=== PATIENT | female | born 1995 | race Two or more races ===

== ENCOUNTER 2022-11-03 14:36 | Emergency (ER) | payer MEDICAID ==
[~2022-11-03] VITALS: Ht 170.2 cm; Wt 56.7 kg
--- NOTE | 2022-11-03 15:40 | NUR ---
dr montalvo at bedside for eval
--- NOTE | 2022-11-03 15:45 | NUR ---
C/O CHEST AND ABDOMINAL PAIN TODAY,SEEN AT AN URGENT CARE 3 DAYS AGO due to pain on urination
--- NOTE | 2022-11-03 15:50 | NUR ---
emtide for ekg
--- NOTE | 2022-11-03 16:31 | NUR ---
pain started as nausea vomiting 3days ago, went to pmd dx uti, today she had back pain and vaomiting pmd gave toradol and sent her to er
[2022-11-03] MEDS ORDERED: CIPROFLOXACIN IV RTU 200 ML IV ONE (16:53)
[2022-11-03] MEDS ORDERED: FAMOTIDINE/PF INJ 20 MG/2 ML VIAL IV ONE ×2 (16:54→17:00)
[2022-11-03] MEDS ORDERED: ONDANSETRON HCL/PF 4 MG/2 ML VIAL ONE (16:54)
[2022-11-03] MEDS ORDERED: IV NS 0.9% 1,000 ML BAG IV ONE (17:00)
[2022-11-03] MEDS ORDERED: ONDANSETRON HCL/PF 4 MG/2 ML VIAL IVP ONE (17:00)
--- NOTE | 2022-11-03 17:00 | NUR ---
sanjay collected, sent to lab
[2022-11-03 17:23] LABS: BASOPHILS # (AUTO) 0.1 K/uL (0.0-0.2); BASOPHILS % (AUTO) 1.4 % (0.0-2.0); EOSINOPHILS % (AUTO) 0.1 % (0.0-6.0); HEMATOCRIT 40 % (33-45); HEMOGLOBIN 12.8 g/dL (11.5-14.8); LYMPHOCYTES # (AUTO) 0.5 K/uL (0.8-4.8); LYMPHOCYTES % (AUTO) 4.7 % (20.0-44.0); MEAN CORPUSCULAR HGB CONC 32 g/dl (31.0-36.0); MEAN CORPUSCULAR VOLUME 91 fL (82-100); MONOCYTES # (AUTO) 0.7 K/uL (0.1-1.30); MONOCYTES % (AUTO) 6.6 % (2.0-12.0); NEUTROPHILS # (AUTO) 9.3 K/uL (1.8-8.9); NEUTROPHILS % (AUTO) 87.2 % (43.0-81.0); PLATELET COUNT (AUTO) 298 K/uL (150-450); RED BLOOD CELL COUNT(AUTO) 4.34 MIL/uL (4.0-5.2); WHITE BLOOD COUNT (AUTO) 10.6 K/uL (4.3-11.0)
[2022-11-03] MEDS: CIPROFLOXACIN IV RTU 400 MG in PREMIX 1 EA IV SCH ×2 (17:25→19:40)
[2022-11-03 17:57] LABS: CALCIUM, SERUM 9.9 mg/dL (8.5-10.1); CREATININE 1.8 mg/dL (0.6-1.3); POTASSIUM 3.8 mmol/L (3.5-5.1)
[2022-11-03 18:14] LABS: ALBUMIN 4.2 g/dL (3.4-5.0); BILIRUBIN,DIRECT 0.2 mg/dL (0.0-0.2); BILIRUBIN,TOTAL 1.2 mg/dL (0.2-1.0); TOTAL PROTEIN, SERUM 8.4 g/dL (6.4-8.2)
[2022-11-03 18:16] LABS: BILIRUBIN,URINE NEGATIVE (NEGATIVE); COLOR,URINE YELLOW (YELLOW); LEUKOCYTE ESTERASE ,URINE 3+ (NEGATIVE); NITRITE, URINE POSITIVE (NEGATIVE); PROTEIN,URINE 1+ mg/dl (NEGATIVE); UGLUCOSE NEGATIVE (NEGATIVE)
--- NOTE | 2022-11-03 18:24 | NUR ---
PT CLAIMS SHE'S DOING BETTER THAN BEFORE
[2022-11-03 18:27] LABS: WBC,URINE 51-80 /HPF (0-3)
[2022-11-03 18:28] LABS: BACTERIA,URINE 4+ /HPF (None Seen); MUCUS,URINE Moderate /LPF (None Seen)
[2022-11-03] MEDS ORDERED: ONDA4TAB5 SL (19:18)
--- NOTE | 2022-11-03 19:40 | NUR ---
Patient discharged to home in stable condition. Written and verbal after care instructions given. Patient verbalizes understanding of instruction. Pt ambulatory with a steady gait
[2022-11-03 19:41] VITALS: BP 120/70; TEMP 97.8; O2SAT 97
[2022-11-08] MEDS ORDERED: MERO1VIA23 IV (12:33)
== END 2022-11-03 19:41 | disposition home or self-care (01) ==
LOC: ER 14:51
DX: N39.0 Urinary tract infection, site not specified (principal); Z88.1 Allergy status to other antibiotic agents
CPT/HCPCS: 99284; 96374; 96361; 96375; 93005 ×2; 85025; 80048; 87086; 83690; 80076; 81001; 36415; 84702; J3490; J2405; J7030; A4216; J0744 ×2

== ENCOUNTER 2022-11-06 02:56 | Inpatient (IN) | payer MEDICAID, OTHER ==
[~2022-11-06] VITALS: Ht 170.2 cm; Wt 56.7 kg
[~2022-11-06 02:56] MED LIST: ONDA4TAB5 SL
--- NOTE | 2022-11-06 03:57 | NUR ---
SUZY C/O AMADA WAS SEEN A FEW DAYS AGO AND WAS DISCHARGED. PAIN CAME BACK TONIGHT FELT WORSE. PT AAO X 4, BREATHING UNLABORED. PT ATTACHED TO MONITOR AND PULSE OX. AWAITING MD JONES.
[2022-11-06] MEDS ORDERED: HYDROMORPHONE INJ 2 MG/ML DISP.SYRIN IV ONE (04:00)
[2022-11-06] MEDS ORDERED: IV NS 0.9% 1,000 ML BAG IV ONE ×2 (04:00→07:30)
[2022-11-06] MEDS ORDERED: ONDANSETRON HCL/PF 4 MG/2 ML VIAL IVP ONE (04:00)
[2022-11-06] MEDS ORDERED: CT SWABBABLE VALVE TRANS SET 1 EA INFUS.SET MC ONE (04:09)
[2022-11-06] MEDS ORDERED: IV NS 0.9% 250 ML IV ONE (04:09)
[2022-11-06] MEDS ORDERED: IOHEXOL-350 100 ML VIAL IV ONE (04:09)
[2022-11-06] MEDS ORDERED: HYDROMORPHONE 1 MG/1 ML DISP.SYRIN ONE ×2 (04:10→07:37)
[2022-11-06] MEDS ORDERED: ONDANSETRON HCL/PF 4 MG/2 ML VIAL ONE ×2 (04:10→07:36)
--- NOTE | 2022-11-06 04:18 | NUR ---
LFA #20G S/L BLOOD COLLETED AND SENT TO LAB
--- NOTE | 2022-11-06 04:23 | NUR ---
pt taken to ct via palomo
[2022-11-06 04:48] LABS: BASOPHILS % (AUTO) 0.3 % (0.0-2.0); EOSINOPHILS % (AUTO) 0.2 % (0.0-6.0); HEMATOCRIT 34 % (33-45); HEMOGLOBIN 11.1 g/dL (11.5-14.8); LYMPHOCYTES # (AUTO) 0.5 K/uL (0.8-4.8); LYMPHOCYTES % (AUTO) 6.2 % (20.0-44.0); MEAN CORPUSCULAR HGB CONC 33 g/dl (31.0-36.0); MEAN CORPUSCULAR VOLUME 90 fL (82-100); MONOCYTES # (AUTO) 1.2 K/uL (0.1-1.30); MONOCYTES % (AUTO) 15.3 % (2.0-12.0); NEUTROPHILS # (AUTO) 6.3 K/uL (1.8-8.9); PLATELET COUNT (AUTO) 219 K/uL (150-450); RED BLOOD CELL COUNT(AUTO) 3.73 MIL/uL (4.0-5.2); WHITE BLOOD COUNT (AUTO) 8.1 K/uL (4.3-11.0)
[2022-11-06 05:02] LABS: ALBUMIN 3.4 g/dL (3.4-5.0); BILIRUBIN,DIRECT 0.1 mg/dL (0.0-0.2); BILIRUBIN,TOTAL 0.6 mg/dL (0.2-1.0); CREATININE 0.8 mg/dL (0.6-1.3); TOTAL PROTEIN, SERUM 7.1 g/dL (6.4-8.2)
--- NOTE | 2022-11-06 05:50 | NUR ---
urine collected, sent to lab
[2022-11-06 06:13] VITALS: O2SAT 96
--- NOTE | 2022-11-06 06:14 | NUR ---
Dr Bowers speaking to patient's dad
--- NOTE | 2022-11-06 06:15 | NUR ---
us tech at bedside
--- NOTE | 2022-11-06 06:55 | NUR ---
Dr Robinson BOOTH on phone call with Dr. Lazcano
[2022-11-06 07:26] LABS: BILIRUBIN,URINE NEGATIVE (NEGATIVE); COLOR,URINE YELLOW (YELLOW); LEUKOCYTE ESTERASE ,URINE NEGATIVE (NEGATIVE); NITRITE, URINE NEGATIVE (NEGATIVE); PH,URINE 5.5 (5.0-8.0); PROTEIN,URINE NEGATIVE (NEGATIVE); UGLUCOSE NEGATIVE (NEGATIVE); UROBILINOGEN,URINE 0.2 EU/dL (0.2)
[2022-11-06] MEDS ORDERED: HYDROMORPHONE 1 MG/1 ML DISP.SYRIN IV ONE (07:30)
[2022-11-06] MEDS ORDERED: ONDANSETRON HCL/PF - ER 4 MG/2 ML VIAL IV ONE (07:30)
[2022-11-06 07:59] LABS: BACTERIA,URINE Few /HPF (None Seen); SQUAMOUS EPITHELIAL CELL,UR Few /HPF (None Seen)
[2022-11-06] MEDS ORDERED: MAG HYDROX/AL HYDROX/SIMETH 30 ML UDC PO PRN (09:00)
[2022-11-06] MEDS ORDERED: MAGNESIUM HYDROXIDE 30 ML UDC PO PRN (09:00)
[2022-11-06] MEDS ORDERED: Z GUARD REMEDY 4 OZ OINT TP PRN (09:00)
[2022-11-06] MEDS ORDERED: ACETAMINOPHEN 325 MG TABLET PO PRN (09:00)
[2022-11-06] MEDS ORDERED: ZOLPIDEM TARTRATE 5 MG TABLET PO PRN (09:00)
--- NOTE | 2022-11-06 09:08 | NUR ---
325-2 PER NURSING SUP. ADMISSIONS NOTIFIED
[2022-11-06] MEDS ORDERED: ZOSYN IVPB 3.375 G in IV D5W 50ml IV SCH ×2 (09:18→12:00)
[2022-11-06] MEDS ORDERED: PANTOPRAZOLE 40 MG VIAL ONE (09:42)
[2022-11-06] MEDS: PANTOPRAZOLE 40 MG VIAL IV SCH (09:46)
--- NOTE | 2022-11-06 09:58 | NUR ---
REPORT GIVEN TO ELLEN YIFAN
[2022-11-06 10:00] VITALS: BP 112/70; TEMP 98.2; O2SAT 96
--- NOTE | 2022-11-06 10:08 | NUR ---
1 L NS IV wide open administered per verbal order of Dr Lazcano
--- NOTE | 2022-11-06 10:16 | NUR ---
THE PATIENT IS TAKEN TO ROOM 325-2 IN STABLE CONDITION AND PER POLICY.
--- NOTE | 2022-11-06 10:20 | NUR ---
ADMISSION NOTE Received patient from ER via gurkimberly. Report given by ELLEN Canas. Patient is A/O x 4, able to make needs known. On room air, breathing evenly and unlabored. No SOB or s/s of distress noted. IV access noted on Left wrist #20, intact and patent. All belongings accounted for, belonging sheet signed. Vital signs taken as follows: BP 112/70, HR 79/min, RR 20/min, Temp 98.2, SPO2 96%. Patient oriented to room and how to use the call light. Patient complained of nausea, Zofran was given at the ER. Safety precautions in place: bed in low, locked position; siderails up x 2; call light within reach. Will continue to monitor.
[2022-11-06] MEDS: IV D5/0.45 NACL 1,000 ML IV PRN ×2 (10:26→21:37)
[2022-11-06] MEDS: CIPROFLOXACIN IV RTU 400 MG in PREMIX 1 EA IV SCH ×2 (12:29→23:53)
[2022-11-06] MEDS: MORPHINE SULFATE INJ 4 MG/ML DISP.SYRIN IV PRN ×2 (12:58→17:10)
[2022-11-06] MEDS: METRONIDAZOLE 500MG/ NS 100ML 500 MG in PREMIX 1 EA IV SCH ×2 (13:25→18:09)
[2022-11-06] MEDS: ONDANSETRON HCL/PF 4 MG/2 ML VIAL IVP PRN (14:28)
[2022-11-06] MEDS ORDERED: KETOROLAC TROMETHAMINE INJ 30 MG/ML VIAL IM PRN (15:30)
[2022-11-06 16:00] VITALS: BP 110/67; TEMP 98.8; O2SAT 98
--- NOTE | 2022-11-06 18:48 | NUR ---
LINING INSERTER CLOSING NOTE Patient in bed, resting. A/O x 4, able to make needs known. Stable on room air, no SOB or s/s of distress noted. IV access on Left wrist #20 infusing D5 1/2 Ns at 125 ml/hr. Patient states pain and nausea is better at this time. All needs attended to. Due meds given. Safety precautions in place: bed in low, locked position; siderails up x 2; call light within reach. Will endorse to shift mechanic nurse for HERMELINDA.
--- NOTE | 2022-11-06 19:10 | NUR ---
MS RN OPENING NOTE RECEIVED PATIENT FROM AM NURSE; PATIENT AWAKE IN BED, A/O X 4, ABLE TO MAKE NEEDS KNOWN, WITH FAMILY AT BEDSIDE; STABLE ON ROOM AIR, BREATHING EVENLY AND NO S/S OF DISTRESS NOTED; WITH IV ACCESS ON LEFT WRIST G#20 RUNNING WITH D5 1/2NS AT 125ML/HR; ENCOURAGED VERBALIZATION OF NEEDS; SAFETY MEASURES IMPLEMENTED, BED LOCKED IN LOWEST POSITION, SIDE RAILS UP X 2, CALL LIGHT AND TABLE WITHIN REACH; WILL CONTINUE TO MONITOR THROUGHOUT SHIFT
--- NOTE | 2022-11-06 19:20 | NUR ---
MS RN NOTE PATIENT COMPLAINED OF SEVERE PAIN ON HER ABDOMEN, ASKING FOR PAIN MEDICATION; ADMINISTERED TORADOL IM PRN PRESCRIBED; DR ECHEVERRIA AWARE. PATIENT TOLERATED WELL, WILL CONTINUE TO MONITOR
[2022-11-06 20:53] VITALS: BP 98/52; TEMP 98.6; O2SAT 96
--- NOTE | 2022-11-06 23:10 | NUR ---
MS RN NOTE PATIENT ASKED FOR SLEEPING MEDICATION TO HELP HER FALL ASLEEP. PATIENT IS ON NPO. HOWEVER, ASKED DR ECHEVERRIA IF I CAN GIVE THE AMBIEN, AGREED. ADMINISTERED AMBIEN PRN AT 2212H PRESCRIBED; PATIENT TOLERATED WELL AND WAS SEEN COMFORTABLY SLEEPING UPON REASSESSMENT. WILL CONTINUE TO MONITOR
[2022-11-07] MEDS: MORPHINE SULFATE INJ 4 MG/ML DISP.SYRIN IV PRN ×4 (00:42→21:05)
--- NOTE | 2022-11-07 01:15 | NUR ---
MS RN NOTE PATIENT WOKE UP AND STATED THAT SHE'S FEELING IN A LOT OF PAIN AND ASKED FOR MEDICATION TO RELIEVE HER PAIN. ADMINISTERED MORPHINE 4MG IV PRN PRESCRIBED AT 0042H; PATIENT WAS SEEN SLEEPING UPON REASSESSMENT. WILL CONTINUE TO MONITOR
[2022-11-07] MEDS: METRONIDAZOLE 500MG/ NS 100ML 500 MG in PREMIX 1 EA IV SCH ×4 (01:38→18:58)
[2022-11-07] MEDS: ONDANSETRON HCL/PF 4 MG/2 ML VIAL IVP PRN ×2 (05:06→16:31)
[2022-11-07 06:24] LABS: BASOPHILS % (AUTO) 0.2 % (0.0-2.0); EOSINOPHILS % (AUTO) 0.7 % (0.0-6.0); HEMATOCRIT 30 % (33-45); HEMOGLOBIN 10.1 g/dL (11.5-14.8); LYMPHOCYTES # (AUTO) 0.7 K/uL (0.8-4.8); LYMPHOCYTES % (AUTO) 10.4 % (20.0-44.0); MEAN CORPUSCULAR HGB CONC 33 g/dl (31.0-36.0); MEAN CORPUSCULAR VOLUME 90 fL (82-100); MONOCYTES # (AUTO) 1.2 K/uL (0.1-1.30); MONOCYTES % (AUTO) 17.4 % (2.0-12.0); NEUTROPHILS # (AUTO) 4.8 K/uL (1.8-8.9); NEUTROPHILS % (AUTO) 71.3 % (43.0-81.0); PLATELET COUNT (AUTO) 212 K/uL (150-450); RED BLOOD CELL COUNT(AUTO) 3.38 MIL/uL (4.0-5.2); WHITE BLOOD COUNT (AUTO) 6.7 K/uL (4.3-11.0)
[2022-11-07] MEDS: IV D5/0.45 NACL 1,000 ML IV PRN (06:34)
[2022-11-07 06:44] LABS: CALCIUM, SERUM 8.3 mg/dL (8.5-10.1); CREATININE 0.6 mg/dL (0.6-1.3); PHOSPHORUS 3.7 mg/dL (2.5-4.9); POTASSIUM 3.4 mmol/L (3.5-5.1)
--- NOTE | 2022-11-07 06:54 | NUR ---
MS RN CLOSING NOTE PATIENT RESTING IN BED, A/O X 4, ABLE TO MAKE NEEDS KNOWN, AMBULATORY WITH ASSISTANCE, WITH FAMILY AT BEDSIDE; STABLE ON ROOM AIR, BREATHING EVENLY AND NO S/S OF DISTRESS NOTED; WITH IV ACCESS ON LEFT WRIST G#20 RUNNING WITH D5 1/2NS AT 125ML/HR; ADMINISTERED MEDICATIONS PRESCRIBED; PATIENT'S NEEDS ATTENDED; KEPT WARM AND COMFORTABLE; NO COMPLAINTS OF PAIN AND DISCOMFORT AT THIS TIME; SAFETY MEASURES IMPLEMENTED, BED LOCKED IN LOWEST POSITION, SIDE RAILS UP X 2, CALL LIGHT AND TABLE WITHIN REACH; WILL ENDORSE TO AM NURSE FOR HERMELINDA.
[2022-11-07 07:00] VITALS: BP 109/62; TEMP 99.9; O2SAT 98
[2022-11-07] MEDS: PANTOPRAZOLE 40 MG VIAL IV SCH (08:04)
--- NOTE | 2022-11-07 08:30 | NUR ---
MS RN OPENING NOTE RECEIVED PATIENT RESTFUL IN BED A&O x4,BREATHING WELL ON ROOM AIR,PATIENT VERBALIZED OF PAIN 11/17,MORPHINE 4MG IV ADMINISTERED.VITALS TAKEN WITHIN NORMAL RANGE.PATIENT IS NPO,SHE ENQUIRED WHEN SHE CAN START DRINKING FLUIDS,OFFERED ICE CHIPS HAS AN IV ACCESS ON THE LEFT WRIST ,INTACT AND INFUSING,ON D5 1/2 NS 125ML/HR SKIN IS INTACT,SAFETY MEASURES IN PLACE,BED IN LOW POSITION &LOCKED,BED RAILS x2 CALL HUMPHREYS AND TABLE WITHIN REACH,CONTINUES WITH CURRENT PLAN OF CARE,CLOSE MONITORING,HOURLY ROUNDING/PRN
[2022-11-07 08:35] LABS: MAGNESIUM 1.3 mg/dL (1.8-2.4)
[2022-11-07] MEDS ORDERED: LORA-259 PO (09:10)
[2022-11-07] MEDS ORDERED: ESCI5TAB PO (09:10)
[2022-11-07] MEDS ORDERED: POTASSIUM CL. PREMIX PERIPHER. 50 ML IV SCH (09:30)
[2022-11-07] MEDS ORDERED: Magnesium 1GM/D5W 100ML PREMIX 100 ML IV SCH (10:30)
--- NOTE | 2022-11-07 10:30 | NUR ---
RN NOTE- PT HAVING IMMENSE DIFFICULTIES W IV KCL AND IV MAG SUPPLEMENTATION FOR ELECTROLYTE IMBALANCE. INFUSED SLOWER, ICE PACKS USED, DISTRACTION. PT TEARFUL, CRYING. CANNOT HANDLE IVF AT THIS TIME. STARTED ON CLEARS. MD AT BEDSIDE. PT C/O ONGOING PAIN. TORADOL INCREASED FROM 30 MG TO 60 MG. ATTEMPTING TO INCREASE PO INTAKE AND CHANGE ELECTROLYTES TO PO. MONITOR / ASSIST. P.T. EVAL, INFECTIOUS DISEASE EVAL PENDING
[2022-11-07] MEDS ORDERED: NITROFURANTOIN/MONOHYDRATE MACROCRYSTALS 100 MG CAPSULE PO SCH (11:21)
[2022-11-07] MEDS: KETOROLAC TROMETHAMINE INJ 30 MG/ML VIAL IM PRN (11:32)
[2022-11-07] MEDS ORDERED: METHOCARBAMOL (500MG) 500 MG TABLET PO SCH (13:00)
[2022-11-07] MEDS: POTASSIUM CHLORIDE 10 MEQ TABLET.SA PO SCH (14:10)
[2022-11-07] MEDS: MAGNESIUM OXIDE 400 MG TABLET PO SCH ×2 (14:10→21:04)
[2022-11-07] MEDS ORDERED: KETOROLAC TROMETHAMINE INJ 30 MG/ML VIAL IM PRN (15:30)
[2022-11-07 16:00] VITALS: BP 92/55; TEMP 98.2; O2SAT 97
--- NOTE | 2022-11-07 18:46 | NUR ---
MS RN CLOSING NOTE PATIENT RESTFUL IN BED A&O x4,BREATHING WELL ON ROOM AIR, PAIN WELL CONTROLLED RECEIVED LAST MORPHINE 4MG AROUND 4PM HAS AN IV ACCESS ON THRIGHT HAND ,INTACT AND INFUSING,ON D5 1/2 NS 125ML/HR SKIN IS INTACT,SAFETY MEASURES IN PLACE,BED IN LOW POSITION &LOCKED,BED RAILS x2 CALL HUMPHREYS AND TABLE WITHIN REACH,WILL ENDORSE PLAN OF CARE TO THE NIGHT NURSE
[2022-11-07] MEDS: METHOCARBAMOL (500MG) 500 MG TABLET PO SCH ×2 (19:11→23:31)
--- NOTE | 2022-11-07 19:30 | NUR ---
MS RN NOTES RECEIVED PT IN BED, AWAKE, FAMILY AT BEDSIDE, A/O X4, ABLE TO MAKE NEEDS KNOWN. PT STABLE ON ROOM AIR, NO SOB NOTED. IV ACCESS ON R HAND 20G, PATENT, INTACT AND INFUSING WELL WITH D5 1/2NS @ 125ML/HR. NO COMPLAINS OF PAIN OR DISCOMFORT AT THIS TIME. SAFETY PRECAUTIONS IN PLACED, BED AT LOWEST AND LOCKED POSITION, SIDE RAILS UP X2, CALL LIGHT AND TABLE WITHIN REACH. ALL NEEDS MET AT THIS TIME, WILL CONTINUE TO MONITOR.
[2022-11-07 20:00] VITALS: BP 98/55; TEMP 97.8; O2SAT 99
[2022-11-07] MEDS: MEROPENEM 1 G in IV NS 0.9% 100 ML IV SCH (21:04)
--- NOTE | 2022-11-07 21:06 | NUR ---
MS RN NOTES PT COMPLAINED OF 9/10 ABDOMINAL PAIN, ADMINISTERED PRN MORPHINE 4MG FOR PAIN NAUSEA ORDERED. WILL CONTINUE TO MONITOR PT.
[2022-11-07] MEDS ORDERED: METOCLOPRAMIDE HCL 10 MG/2 ML VIAL IV PRN (22:00)
--- NOTE | 2022-11-07 22:00 | NUR ---
RN NOTE PT COMPLAINED OF NAUSEA. INFORMED FORMAL WAITER/WAITRESS MEERA WITH NEW ORDER FOR REGLAN 10 MG IVP Q6H PRN FOR BREAKTHROUGH NAUSEA. ORDER NOTED AND CARRIED OUT. PT NOW WITH ONE EPISODE OF EMESIS. CALLED [facility] FOR APPROVAL OF REGLAN. WAITING TO BE VERIFIED.
--- NOTE | 2022-11-07 22:11 | NUR ---
MS RN NOTE PT NOTED WITH 1 EPISODE OF EMESIS, ADMINISTERED REGLAN 10MG FOR BREAKTHROUGH NAUSEA ORDERED. EMESIS BAGS PROVIDED, AFEBRILE, CONTINUOS IV FLUID MAINTAINED, ALL NEEDS MET AT THIS TIME.
[2022-11-08] MEDS: IV D5/0.45 NACL 1,000 ML IV PRN ×2 (02:23→12:00)
[2022-11-08] MEDS: MORPHINE SULFATE INJ 4 MG/ML DISP.SYRIN IV PRN ×4 (04:18→16:14)
--- NOTE | 2022-11-08 04:18 | NUR ---
MS RN NOTES PT COMPLAINS OF 9/10 BACK AND HEAD PAIN, REQUESTING FOR MORPHINE. PRN MORPHINE 4MG GIVEN. WILL REASSESS AND CONTINUE TO MONITOR PT.
[2022-11-08] MEDS: MEROPENEM 1 G in IV NS 0.9% 100 ML IV SCH ×2 (04:38→13:01)
[2022-11-08] MEDS: METHOCARBAMOL (500MG) 500 MG TABLET PO SCH ×3 (06:02→17:36)
[2022-11-08 06:29] LABS: BASOPHILS % (AUTO) 0.5 % (0.0-2.0); EOSINOPHILS % (AUTO) 1.8 % (0.0-6.0); HEMATOCRIT 28 % (33-45); HEMOGLOBIN 9.1 g/dL (11.5-14.8); LYMPHOCYTES # (AUTO) 0.8 K/uL (0.8-4.8); LYMPHOCYTES % (AUTO) 17.1 % (20.0-44.0); MEAN CORPUSCULAR HGB CONC 33 g/dl (31.0-36.0); MEAN CORPUSCULAR VOLUME 89 fL (82-100); MONOCYTES % (AUTO) 22.2 % (2.0-12.0); NEUTROPHILS # (AUTO) 2.6 K/uL (1.8-8.9); NEUTROPHILS % (AUTO) 58.4 % (43.0-81.0); PLATELET COUNT (AUTO) 225 K/uL (150-450); RED BLOOD CELL COUNT(AUTO) 3.12 MIL/uL (4.0-5.2); WHITE BLOOD COUNT (AUTO) 4.5 K/uL (4.3-11.0)
--- NOTE | 2022-11-08 06:33 | NUR ---
MS RN CLOSING NOTE PT IN BED, AWAKE, A/O X4, ABLE TO MAKE NEEDS KNOWN. PT STABLE ON ROOM AIR, NO SOB NOTED. IV ACCESS ON R HAND 20G, PATENT, INTACT AND INFUSING WELL WITH D5 1/2NS @ 125ML/HR. PT HAD 1 EPISODE OF EMESIS THIS SHIFT, MANAGED WITH PRN MEDICATIONS, NO NAUSEA COMPLAINS AT THIS TIME. DENIES PAIN OR ANY DISCOMFORT AT THIS TIME. ALL DUE MEDS GIVEN, ALL NEEDS ATTENDED. SAFETY PRECAUTIONS IN PLACED, BED AT LOWEST AND LOCKED POSITION, SIDE RAILS UP X2, CALL LIGHT AND TABLE WITHIN REACH. WILL ENDORSE TO INCOMING NURSE FOR HERMELINDA.
[2022-11-08 07:04] LABS: CALCIUM, SERUM 7.7 mg/dL (8.5-10.1); CREATININE 0.7 mg/dL (0.6-1.3); MAGNESIUM 1.4 mg/dL (1.8-2.4); POTASSIUM 3.3 mmol/L (3.5-5.1)
[2022-11-08 08:00] VITALS: BP 103/61; TEMP 98.1; O2SAT 97
--- NOTE | 2022-11-08 08:00 | NUR ---
RN NOTES PATIENT C/O OF PAIN AND DISCOMFORT AND MORPHINE IV GIVEN ORDERED
[2022-11-08] MEDS ORDERED: PANTOPRAZOLE 40 MG TABLET.DR PO SCH (09:00)
[2022-11-08] MEDS: POTASSIUM CHLORIDE 10 MEQ TABLET.SA PO SCH (09:05)
[2022-11-08] MEDS: ONDANSETRON HCL/PF 4 MG/2 ML VIAL IVP PRN (09:19)
[2022-11-08 09:42] LABS: EOSINOPHILS % (MANUAL) 3 % (0-4); LYMPHOCYTES % (MANUAL) 13 % (16-48); MONOCYTES % (MANUAL) 21 % (0-11.0); NEUTROPHILS % (MANUAL) 63 (42-76)
--- NOTE | 2022-11-08 12:15 | NUR ---
RN NOTES PATIENT C/O OF PAIN AND DISCOMFORT AND MORPHINE IV 4MG /1ML GIVEN ORDERED
[2022-11-08] MEDS ORDERED: MERO1VIA23 IV (12:33)
[2022-11-08] MEDS: KETOROLAC TROMETHAMINE INJ 30 MG/ML VIAL IM PRN (14:41)
--- NOTE | 2022-11-08 14:50 | NUR ---
RN NOTES PATIENT C/O OF PAIN AND DISCOMFORT AND TORADOL INJ 60 MG IM GIVEN ORDERED
[2022-11-08 16:00] VITALS: BP 101/64; TEMP 98.3; O2SAT 95
--- NOTE | 2022-11-08 16:20 | NUR ---
RN NOTES PATIENT C/O OF PAIN AND DISCOMFORT AND MORPHINE IV 4MG /1ML GIVEN ORDERED
--- NOTE | 2022-11-08 18:08 | NUR ---
RANGE AID NOTES PATIENT WAS SEEN BY DR BEY , FOR [facility] TO [facility] FOR [facility]URANCE REQUEST AND FURTHER MANAGEMENT , DISCHARGE PAPER WERE PREPARED AND D/C INSTRUCTIONS PROVIDED REGARDING DIET , MEDICATIONS TO CONTINUE , FOLLOW UP WITH PCP AND WHEN TO CALL 911 IN CASE OF EMERGENCY , PATIENT IS ALERT AND ORIENTED AND UNDERSTOOD INSTRUCTIONS PROVIDED WITH PARENTS AT BEDSIDE , ALL BELONGINGS WERE TAKEN AND FORM WAS SIGNED , TRANSPORTATION , VIA AMBULANCE USING [facility] [place] EMT , PATIENT WILL TRANSFERRED TO [facility] , AND SPOKE WITH JALEEL HUGHES FOR THE REPORT , LEFT AROUND [id number] WITH EMT .
== END 2022-11-08 18:10 | disposition short-term general hospital (02) | DRG 720 ==
LOC: ER 03:01 → MED 09:10
PROVIDERS: ADMIT Student in an Organized Health Care Education/Training Program; ATTEND Internal Medicine
DX: A41.9 Sepsis, unspecified organism (principal); E83.51 Hypocalcemia; D64.9 Anemia, unspecified; K52.9 Noninfective gastroenteritis and colitis, unspecified; E86.0 Dehydration; N10 Acute pyelonephritis; B96.20 Unspecified Escherichia coli [E. coli] as the cause of diseases classified elsewhere; E87.6 Hypokalemia; Z88.1 Allergy status to other antibiotic agents; Z16.11 Resistance to penicillins
CPT/HCPCS: 36415; 76705-TC; 76856-TC; 80048-TC; 80076-TC; 81001; 83690-TC; 83735-TC; 84100-TC; 84703-TC; 85025-TC; 87086-TC; 97112-TC; 97116-TC; 97530-TC; A4216; A4223; C9113; G0378; J0744; J1170; J1885; J2185; J2270; J2405; J2543; J2765; J3475; J3480; J3490; J7030; J7050; J7060; J7070; Q9967

== ENCOUNTER 2023-03-17 04:06 | Emergency (ER) | payer MEDICAID ==
[~2023-03-17] VITALS: Ht 170.2 cm; Wt 50.8 kg
[~2023-03-17 04:06] MED LIST changes: +ESCI5TAB PO; +LORA-259 PO; +MERO1VIA23 IV; -ONDA4TAB5 SL
[2023-03-17] MEDS ORDERED: MAG HYDROX/AL HYDROX/SIMETH 30 ML UDC PO ONE (04:30)
[2023-03-17] MEDS ORDERED: ONDANSETRON HCL/PF 4 MG/2 ML VIAL IV ONE ×3 (04:30→06:00)
[2023-03-17] MEDS ORDERED: LIDOCAINE VISCOUS 2% UD 15 ML UDC MM ONE (04:30)
[2023-03-17] MEDS ORDERED: LIDOCAINE VISCOUS 2% UD 15 ML UDC ONE (04:33)
[2023-03-17] MEDS ORDERED: MAG HYDROX/AL HYDROX/SIMETH 30 ML UDC ONE (04:33)
[2023-03-17] MEDS ORDERED: ONDANSETRON HCL/PF 4 MG/2 ML VIAL ONE ×3 (04:33→06:01)
[2023-03-17 04:57] LABS: BASOPHILS % (AUTO) 0.3 % (0.0-2.0); EOSINOPHILS % (AUTO) 0.2 % (0.0-6.0); HEMATOCRIT 39 % (33-45); HEMOGLOBIN 12.5 g/dL (11.5-14.8); LYMPHOCYTES % (AUTO) 10.6 % (20.0-44.0); MEAN CORPUSCULAR HEMOGLOBIN 29 PG (26.0-33.0); MEAN CORPUSCULAR HGB CONC 33 g/dl (31.0-36.0); MEAN CORPUSCULAR VOLUME 89 fL (82-100); MONOCYTES # (AUTO) 0.4 K/uL (0.1-1.30); MONOCYTES % (AUTO) 3.7 % (2.0-12.0); NEUTROPHILS # (AUTO) 8.1 K/uL (1.8-8.9); NEUTROPHILS % (AUTO) 85.2 % (43.0-81.0); PLATELET COUNT (AUTO) 345 K/uL (150-450); RED CELL DISTRIBUTION WIDTH 14.4 % (11.5-15.0); WHITE BLOOD COUNT (AUTO) 9.5 K/uL (4.3-11.0)
[2023-03-17] MEDS ORDERED: IV NS 0.9% 1,000 ML BAG IV ONE ×2 (05:00→07:00)
[2023-03-17 05:13] LABS: APPEARANCE,URINE CLEAR (CLEAR); BILIRUBIN,URINE NEGATIVE (NEGATIVE); BLOOD, URINE TRACE-INTA Ery/uL (NEGATIVE); COLOR,URINE YELLOW (YELLOW); KETONES,URINE 3+ mg/dL (NEGATIVE); LEUKOCYTE ESTERASE ,URINE NEGATIVE (NEGATIVE); NITRITE, URINE NEGATIVE (NEGATIVE); PROTEIN,URINE TRACE mg/dl (NEGATIVE); UGLUCOSE NEGATIVE (NEGATIVE); UROBILINOGEN,URINE 0.2 EU/dL (0.2)
[2023-03-17 05:13] LABS: CALCIUM, SERUM 9.4 mg/dL (8.5-10.1); CARBON DIOXIDE 18 mmol/L (21-32); CHLORIDE 101 mmol/L (98-107); CREATININE 0.9 mg/dL (0.6-1.3); GLUCOSE 178 mg/dL (74-106); POTASSIUM 3.4 mmol/L (3.5-5.1); SODIUM SERUM 138 mmol/L (136-145); UREA NITROGEN, BLOOD 10 mg/dL (7-18)
[2023-03-17 05:14] LABS: ADD URINE CULTURE NO; BACTERIA,URINE Rare /HPF (None Seen); RBC,URINE 0-2 /HPF (0-2); SQUAMOUS EPITHELIAL CELL,UR Few /HPF (None Seen); WBC,URINE 0-2 /HPF (0-3)
[2023-03-17 05:20] LABS: ACETAMINOPHEN < 10 ug/ml (10-30); ALANINE AMINOTRANSFERASE 18 U/L (12-78); ALBUMIN 4.7 g/dL (3.4-5.0); ALCOHOL, BLOOD < 3 mg/dL (0-10); ALKALINE PHOSPHATASE 50 U/L (46-116); ASPARTATE AMINOTRANSFERASE 21 U/L (15-37); BILIRUBIN,DIRECT 0.1 mg/dL (0.0-0.2); BILIRUBIN,TOTAL 0.3 mg/dL (0.2-1.0); TOTAL PROTEIN, SERUM 7.9 g/dL (6.4-8.2)
[2023-03-17 05:21] LABS: AMPHETAMINE, URINE NEGATIVE (NEGATIVE); BARBITURATE, URINE NEGATIVE (NEGATIVE); BENZODIAZEPINE, URINE NEGATIVE (NEGATIVE); CANNABINOID, URINE NEGATIVE (NEGATIVE); COCCAINE, URINE NEGATIVE (NEGATIVE); OPIATE, URINE NEGATIVE (NEGATIVE); PHENCYCLIDINE SCREEN,URINE NEGATIVE (NEGATIVE)
[2023-03-17 05:22] LABS: SALICYLATE 0.8 mg/dL (2.8-20.0)
[2023-03-17] MEDS ORDERED: diphenhydrAMINE HCL 50 MG/ML VIAL ONE (06:41)
[2023-03-17] MEDS ORDERED: METOCLOPRAMIDE HCL 10 MG/2 ML VIAL ONE (06:41)
[2023-03-17 06:49] LABS: PREGNANCY TEST URINE QUAL NEGATIVE (NEGATIVE)
[2023-03-17] MEDS ORDERED: diphenhydrAMINE HCL 50 MG/ML VIAL IV ONE (07:00)
[2023-03-17] MEDS ORDERED: METOCLOPRAMIDE HCL 10 MG/2 ML VIAL IV ONE (07:00)
[2023-03-17 14:34] VITALS: BP 110/82; TEMP 98.7; O2SAT 99
== END 2023-03-17 14:35 | disposition home or self-care (01) ==
LOC: ER 04:13
DX: T39.392A Poisoning by other nonsteroidal anti-inflammatory drugs [NSAID], intentional self-harm, initial encounter (principal); R10.13 Epigastric pain; R45.851 Suicidal ideations; F32.A Depression, unspecified; Z88.8 Allergy status to other drugs, medicaments and biological substances; Z20.822 Contact with and (suspected) exposure to COVID-19; Y92.89 Other specified places as the place of occurrence of the external cause
CPT/HCPCS: 99285; 96374; 96361; 96375; 93005; 96376; 85025; 80048; 80076; 84703; 81001; 36415; 87426; 80143; 80320; 80307; J1200; J2765; J2405 ×3; J7030 ×2; C9803; G0480